=== PATIENT | male | born 1965 | race Caucasian/White ===

== ENCOUNTER 2018-04-21 22:40 | Emergency (ER) | payer OTHER ==
[~2018-04-21] VITALS: Ht 167.6 cm; Wt 103.4 kg
[2018-04-21] MEDS ORDERED: TESSALON PERLE100 MG (22:56)
[2018-04-21] MEDS ORDERED: PREVACID (22:56)
[2018-04-21] MEDS ORDERED: PREDNISONE (22:56)
[2018-04-21] MEDS ORDERED: XYZAL (22:57)
[2018-04-21 23:17] LABS: ABSOLUTE BASOPHILS 0.2 thou/uL (0.0-0.2); ABSOLUTE EOSINOPHILS 0.1 thou/uL (0.0-0.7); ABSOLUTE LYMPHOCYTES 1.6 thou/uL (0.8-5.3); ABSOLUTE MONOCYTES 1.2 thou/uL (0.0-1.2); ABSOLUTE NEUTROPHILS 8.9 thou/uL (1.6-8.1); BASOPHILS 1.3 %; EOSINOPHILS 0.8 %; HEMATOCRIT 38.8 % (42.0-52.0); HEMOGLOBIN 12.6 gm/dL (14.0-18.0); LYMPHOCYTES 13.6 %; MCH 25.1 pg (26.0-34.0); MCHC 32.4 g/dL (28.0-37.0); MCV 77.3 fL (80.0-100.0); NUCLEATED RBCS 0 /100WBC; PLATELET COUNT* 247 thou/uL (150-400); POLYS 74.3 %; RBC 5.02 mil/uL (4.50-6.00); RDW-CV 15.5 % (10.5-14.5)
[2018-04-21 23:22] LABS: URINE BILIRUBIN NEGATIVE (Negative); URINE BLOOD NEGATIVE (Negative); URINE CLARITY CLEAR; URINE COLOR YELLOW; URINE GLUCOSE-RANDOM NEGATIVE (Negative); URINE KETONES NEGATIVE (Negative); URINE LEUKOCYTES-REFLEX NEGATIVE (Negative); URINE NITRITE-REFLEX NEGATIVE (Negative); URINE PROTEIN NEGATIVE (Negative); URINE SPECIFIC GRAVITY 1.015 (1.005-1.030); URINE UROBILINOGEN 0.2 E.U./dl (0.2-1.0)
[2018-04-21 23:24] LABS: CALCIUM 8.5 mg/dL (8.5-10.1); POTASSIUM 3.7 mmol/L (3.5-5.1)
[2018-04-21 23:28] LABS: ALBUMIN 3.6 g/dL (3.4-5.0); TOTAL BILIRUBIN 0.4 mg/dL (<0.1-1.0); TOTAL PROTEIN 7.6 g/dL (6.4-8.2)
[2018-04-22] MEDS ORDERED: FLAGYL500 MG PO (01:50)
[2018-04-22] MEDS ORDERED: LEVAQUIN 750 M750 MG PO (01:50)
[2018-04-22] MEDS ORDERED: HYDROCODON-ACE1 EAC7 PO (01:50)
[2018-04-22] MEDS ORDERED: PHENERGAN 25 MG25 M1 PO (01:53)
[2018-04-22 02:39] VITALS: BP 132/88
== END 2018-04-22 02:41 | disposition home or self-care (01) ==
LOC: M.ERS 22:40
PROVIDERS: Nurse Practitioner Family
DX: K57.92 Diverticulitis of intestine, part unspecified, without perforation or abscess without bleeding (principal); J45.909 Unspecified asthma, uncomplicated; K21.9 Gastro-esophageal reflux disease without esophagitis; Z88.5 Allergy status to narcotic agent; Z88.8 Allergy status to other drugs, medicaments and biological substances